=== PATIENT | female | born 2000 | race Caucasian/White ===

== ENCOUNTER 2020-10-20 18:08 | Emergency (ER) | payer OTHER ==
[2020-10-20 20:53] LABS: MONOSPOT (MONONUCLEOSIS) NEGATIVE (NEGATIVE)
[2020-10-20 20:53] LABS: CORONAVIRUS 2019 SARS-COV-2 NEGATIVE (NEGATIVE); INFLUENZA A NAA NEGATIVE (NEGATIVE)
[2020-10-20] MEDS ORDERED: IBUPROFEN800 MG PO (21:56)
== END 2020-10-20 22:49 | disposition home or self-care (01) ==
LOC: FER 18:08
PROVIDERS: Emergency Medicine Emergency Medical Services
DX: B34.9 Viral infection, unspecified (principal); H92.02 Otalgia, left ear; Z88.1 Allergy status to other antibiotic agents; Z88.8 Allergy status to other drugs, medicaments and biological substances; Z20.822 Contact with and (suspected) exposure to COVID-19
CPT/HCPCS: 70360; 71046; 86308; 87880; J1100; U0002